=== PATIENT | male | born 1980 | race Two or more races ===

== ENCOUNTER 2022-01-28 13:52 | Outpatient (REF) | payer OTHER, SELFPAY ==
[2022-01-30 14:48] LABS: H Pylori Breath Test Positive (Negative)
== END 2022-01-28 13:53 | disposition home or self-care (01) ==
LOC: HO.LNP 13:52
PROVIDERS: Visit Provider Physician Assistant Surgical
DX: E66.9 Obesity, unspecified (principal); Z68.39 Body mass index [BMI] 39.0-39.9, adult; Z71.3 Dietary counseling and surveillance
CPT/HCPCS: 83013; 99202; 99211

== ENCOUNTER 2022-02-03 12:13 | Outpatient (REF) | payer OTHER, SELFPAY ==
--- NOTE | ~2022-02-03 | XR_ITS ---
EXAMINATION: XR CHEST CLINICAL INFORMATION: Obesity COMPARISON: None TECHNIQUE: 2 views of the chest were obtained. FINDINGS: No significant abnormality is noted involving the heart, lungs, mediastinum, bony thorax or soft tissues. XR/XR chest 2V IMPRESSION: Unremarkable examination.
[2022-02-03 12:28] LABS: MANUAL DIFF FLAG NO
[2022-02-03 12:36] LABS: Basophils Absolute Auto 0.1 X10*3/uL (0.0-0.2); Basophils Percent Auto 0.7 % (0-2); Eosinophils Absolute Auto 0.2 X10*3/uL (0.0-0.4); Eosinophils Percent Auto 2.2 % (0-4); Hematocrit 45.7 % (42.0-52.0); Hemoglobin 15.5 g/dl (14.0-18.0); Imm Gran Abs Auto 0.07 X10*3/uL (0.00-0.03); Imm Gran Pct Auto 0.9 % (0.0-0.4); Lymphocytes Absolute Auto 2.6 X10*3/uL (1.2-4.9); Lymphocytes Percent Auto 34.3 % (20-40); Mean Corpuscular HGB Conc 33.9 g/dl (31.0-36.0); Mean Corpuscular Hemoglobin 30.8 pg (27.0-33.0); Mean Corpuscular Volume 90.7 fL (80.0-98.0); Mean Platelet Volume 10.7 fL (9.4-12.4); Monocytes Absolute Auto 0.5 X10*3/uL (0.1-1.2); Monocytes Percent Auto 6.6 % (2-11); Neutrophils Absolute Auto 4.2 x10*3/uL (2.0-8.3); Neutrophils Percent Auto 55.3 % (45-73); Platelet Count 220 X10*3/uL (160-400); Red Blood Count 5.04 X10*6/uL (4.60-5.80); Red Cell Distribution Width 12.2 % (11.0-16.0); White Blood Count 7.6 X10*3/uL (4.8-10.8)
[2022-02-03 12:55] LABS: Estimated Average Glucose 151 mg/dL; Hemoglobin A1c % 6.9 %
[2022-02-03 13:46] LABS: Alanine Aminotransferase 34 U/L (0-40); Albumin Level 4.2 g/dL (3.5-5.0); Alkaline Phosphatase 74 U/L (39-117); Anion Gap 10 (12-20); Aspartate Amino Transferase 29 U/L (5-37); Bilirubin Total 0.4 mg/dL (0.0-1.0); Blood Urea Nitrogen 13 mg/dL (9-16); C Reactive Protein 0.42 mg/dL (< or = 0.50); Calcium 9.5 mg/dL (8.4-10.2); Carbon Dioxide 30 mmol/L (22-29); Chloride 105 mmol/L (96-108); Cholesterol 249 mg/dL; Estimated Glomerular Filt Rate > 60; Ferritin 476 ng/mL (20-250); Glucose Random 116 mg/dL (60-115); HDL Cholesterol 28 mg/dL; Insulin 26 uU/mL (2-29); Iron 81 mcg/dL (45-160); Percent Iron Saturation 28 % (15-50); Potassium 4.5 mmol/L (3.3-5.1); Sodium 140 mmol/L (135-145); TSH reflex Free T4 0.74 uIU/mL (0.32-4.0); Total Iron Binding Capacity 287 mcg/dL (228-428); Total Protein 7.2 g/dL (6.5-8.0); Triglycerides 860 mg/dL; Unsaturated Iron Binding 206 ug/dL; Vitamin D 25-OH Total 11.6 ng/mL (>30)
[2022-02-03 13:55] LABS: Folate 8.9 ng/mL (> or = 4.0); Vitamin B12 524 pg/mL (200-900)
[2022-02-04 17:48] LABS: Calcium (PTHI) 9.5 mg/dL (8.6-10.3); PTHI 68 pg/mL (16-77)
[2022-02-06 16:02] LABS: Zinc 81 mcg/dL (60-130)
[2022-02-07 10:19] LABS: Vitamin B1 10 nmol/L (8-30)
[2022-02-07 17:32] LABS: Vitamin A 47 mcg/dL (38-98)
== END 2022-02-03 12:14 | disposition home or self-care (01) ==
LOC: HO.XRAY 12:13
PROVIDERS: Visit Provider Physician Assistant Surgical
DX: E66.9 Obesity, unspecified (principal)
CPT/HCPCS: 36415; 71046; 80053; 80061; 82306; 82607; 82728; 82746; 83036; 83525; 83540; 83970; 84425; 84443; 84590; 84630; 85025; 86140

== ENCOUNTER → 2022-02-11 11:43 | Outpatient (REF) | payer OTHER, SELFPAY ==
--- NOTE | 2022-02-11 11:47 | ECG_ITS ---
Test Reason : E66.9 Obesity Blood Pressure : / mmHG Vent. Rate : 089 BPM Atrial Rate : 089 BPM P-R Int : 154 ms QRS Dur : 080 ms QT Int : 346 ms P-R-T Axes : 058 055 039 degrees QTc Int : 420 ms Normal sinus rhythm Normal ECG No previous ECGs available Referred By: Moe Burton Electronically Signed By:GENESIS MCCORD
== END ==
LOC: HO.CARD 11:43
PROVIDERS: Visit Provider Physician Assistant Surgical
DX: E66.9 Obesity, unspecified (principal)
CPT/HCPCS: 93005

== ENCOUNTER → 2022-02-16 11:36 | Outpatient (BNVA) | payer OTHER, SELFPAY | PROVIDERS: Visit Provider Physician Assistant Surgical | DX: E66.9 Obesity, unspecified (principal); Z68.38 Body mass index [BMI] 38.0-38.9, adult | CPT/HCPCS: 99212 ==

== ENCOUNTER → 2022-03-03 11:00 | Outpatient (BNVA) | payer OTHER, SELFPAY | PROVIDERS: Visit Provider Physician Assistant Surgical | DX: Z11.0 Encounter for screening for intestinal infectious diseases (principal) | CPT/HCPCS: 99211 ==

== ENCOUNTER 2022-03-03 16:46 | Outpatient (REF) | payer OTHER, SELFPAY ==
[2022-03-04 15:09] LABS: H Pylori Breath Test Negative (Negative)
== END 2022-03-03 16:47 | disposition home or self-care (01) ==
LOC: HO.LNP 16:46
PROVIDERS: Visit Provider Physician Assistant Surgical
DX: Z01.818 Encounter for other preprocedural examination (principal)
CPT/HCPCS: 83013

== ENCOUNTER → 2022-03-09 11:38 | Outpatient (BNVA) | payer OTHER, SELFPAY | PROVIDERS: Visit Provider Physician Assistant Surgical | DX: E66.9 Obesity, unspecified (principal); Z68.37 Body mass index [BMI] 37.0-37.9, adult | CPT/HCPCS: 99212 ==

== ENCOUNTER → 2022-03-10 11:05 | Outpatient (BNVA) | payer OTHER, SELFPAY | PROVIDERS: Referring Provider Physician Assistant Surgical; Visit Provider Dietitian, Registered | DX: E66.9 Obesity, unspecified (principal); Z68.37 Body mass index [BMI] 37.0-37.9, adult | CPT/HCPCS: 97802 ==

== ENCOUNTER 2022-03-23 08:08 | Outpatient (REF) | payer OTHER, SELFPAY ==
--- NOTE | ~2022-03-23 | US_ITS ---
EXAMINATION: US COMPLETE ABDOMEN WITH LIVER ELASTOGRAPHY CLINICAL INFORMATION: Obesity COMPARISON: None. TECHNIQUE: Real-time imaging of the abdominal viscera. Noninvasive ultrasound liver fibrosis assessment is performed using Teresa ElastPQ point quantification shear wave elastography (2D-SWE) with a C5-2 MHz transducer. Multiple elastography samples are obtained. FINDINGS: PANCREAS: The visualized pancreatic head and body are normal in appearance. The remainder of the pancreas is obscured from visualization by the overlying bowel gas. ABDOMINAL AORTA: The proximal, middle, and distal aortic segments are normal in caliber. INFERIOR VENA CAVA: Visualized portions are normal. LIVER: Normal. The liver demonstrates normal size, contour and echogenicity. No focal lesion or intrahepatic biliary duct dilatation. The right lobe measures 16 cm in length. The left lobe measures 11 cm in length. Portal flow is normal/hepatopedal Shear wave liver elastography median stiffness is 1.6 m/s (reference: normal median stiffness is 1.3 m/s or less). IQR/median stiffness to assess sampling precision is 0.15 (reference: good quality data set is IQR/median stiffness of 0.15 or less). GALLBLADDER: Normal. The gallbladder is physiologically distended without evidence of stones, sludge, polyps, wall thickening or pericholecystic fluid. COMMON BILE DUCT: Normal in caliber measuring 0.3 cm in diameter. RIGHT KIDNEY: Normal. No hydronephrosis. No renal calculi or focal parenchymal lesions. The kidney measures 11 cm in maximum dimension. LEFT KIDNEY: Normal. No hydronephrosis. No renal calculi or focal parenchymal lesions. The kidney measures 12 cm in maximum dimension. SPLEEN: Normal. The spleen measures 12 cm in maximum dimension. FREE FLUID: None. US/US abdomen comp w elastography IMPRESSION: 1. Impression: Limited visualization of the tail the pancreas otherwise unremarkable exam. 2. Liver elastography: In the absence of other known clinical signs, rules out compensated advanced chronic liver disease. Adequate liver sampling. REFERENCE: Society of Radiologists in Ultrasound Liver Stiffness Thresholds (2020): LIVER STIFFNESS THRESHOLDS: *Liver Stiffness equal or less than 1.3 m/s: High probability of being normal. *Liver Stiffness less than 1.7 m/s: In the absence of other known clinical signs, rules out compensated advanced chronic liver disease. *Liver Stiffness 1.7-2.1 m/s: Suggestive of compensated advanced chronic liver disease but need further test for confirmation. *Liver Stiffness over 2.1 m/s: Rules in compensated advanced chronic liver disease. *Liver Stiffness over 2.4 m/s: Suggestive of clinically significant portal hypertension. QUALITY OF DATA SET: *IQR/Median value equal or less than 0.15 implies a quality data set. *IQR/Median value over 0.15 implies a poor quality data set. SIGNIFICANT CHANGE FROM PRIOR EXAM: Significant change if liver stiffness measurement is 10% or greater from prior exam. OTHER CONSIDERATIONS: The stage of liver fibrosis may be overestimated in the setting of acute hepatitis, liver inflammation, elevated liver function tests, hepatic vascular congestion, obstructive cholestasis, non-fasting state, and infiltrative diseases such as amyloidosis and lymphoma. In some patients with NAFLD, the liver stiffness thresholds for compensated advanced chronic liver disease may be lower. In causes other than viral hepatitis and NAFLD, liver stiffness thresholds are not well established.
--- NOTE | ~2022-03-23 | FL_ITS ---
EXAMINATION: FL UPPER GI WITH AIR CLINICAL INFORMATION: Obesity. COMPARISON: None TECHNIQUE: Upper GI was performed using thin and thick barium and effervescent granules FINDINGS: Esophageal motility is normal. There is a small sliding-type hiatal hernia. There is mild gastroesophageal reflux. The stomach and duodenum are normal-appearing. No fold thickening, mass, ulcer or stricture. FLUOROSCOPY TIME: 0.4 minutes. DOSE AREA PRODUCT: 4.6 Gy-cm2 FL/FL upper GI w air IMPRESSION: Mild gastroesophageal reflux. Small sliding-type hiatal hernia.
== END 2022-03-23 08:09 | disposition home or self-care (01) ==
LOC: HO.US 08:08
PROVIDERS: Visit Provider Physician Assistant Surgical
DX: Z01.818 Encounter for other preprocedural examination (principal); E66.9 Obesity, unspecified; K21.9 Gastro-esophageal reflux disease without esophagitis
CPT/HCPCS: 74246; 76705; 76981

== ENCOUNTER → 2022-04-15 14:35 | Outpatient (BNVA) | payer OTHER, SELFPAY | PROVIDERS: PCP Physician Assistant Medical; Visit Provider Physician Assistant Surgical | DX: E66.9 Obesity, unspecified (principal); Z68.36 Body mass index [BMI] 36.0-36.9, adult | CPT/HCPCS: 99212 ==

== ENCOUNTER → 2022-05-04 11:06 | Outpatient (BNVA) | payer OTHER, SELFPAY | PROVIDERS: PCP Physician Assistant Medical; Visit Provider Physician Assistant Surgical | DX: E66.9 Obesity, unspecified (principal); Z68.36 Body mass index [BMI] 36.0-36.9, adult | CPT/HCPCS: 99212 ==

== ENCOUNTER → 2022-05-26 10:40 | Outpatient (BNVA) | payer OTHER, SELFPAY | PROVIDERS: PCP Physician Assistant Medical; Visit Provider Physician Assistant Surgical | DX: E66.9 Obesity, unspecified (principal); Z68.36 Body mass index [BMI] 36.0-36.9, adult | CPT/HCPCS: 99212 ==

== ENCOUNTER → 2022-06-22 08:41 | Outpatient (BNVA) | payer OTHER, SELFPAY | PROVIDERS: PCP Physician Assistant Medical; Visit Provider Surgery ==

== ENCOUNTER → 2022-07-21 08:03 | Outpatient (BNVA) | payer OTHER, SELFPAY | PROVIDERS: PCP Physician Assistant Medical; Visit Provider Surgery ==

== ENCOUNTER 2022-08-24 11:10 | Outpatient (AMB) | payer OTHER, SELFPAY ==
--- NOTE | 2022-08-24 11:16 | A.OFFVIS_ITS ---
Intake VS Expanded 08/24/22 11:20 Height 5 ft 5 in Weight 227 lb 12.8 oz BMI 37.9 BP 130/61 Blood Pressure Location Rt brachial Blood Pressure Position Sitting Pulse 80 Pulse Source Pulse Oximeter Temp 97.4 F Temperature Source Temporal Artery Scan Pulse Oximetry 95 Oxygen Delivery Method Room Air Body Fat 72.0 Body Fat Percentage 31.7 Free Fat Mass 155.6 Muscle Mass 148.0 Visceral Mass 17.0 Water Mass 116.8 BMR 2,112 Intake Visit Reasons: (OV) F/U SWL University Internship Required: Yes University Internship Name: office CMI Allergies shellfish derived Allergy (Mild, Verified 08/24/22 11:19) Swelling Medication List - Last Reconciled 08/24/22 by ROGER Humphries atorvastatin 40 mg PO DAILY cholecalciferol (vitamin D3) 125 mcg PO DAILY PRN CPAP (CPAP Machine/Device) As directed multivitamin 1 tab PO DAILY HPI HPI Comments History of Present Illness Details 42 yo male returns for pre-op planning weight today is 227.8 pounds initial weight on 01/21/22 was 236.6 weight loss 8.8 pounds or 3.7 % TBWL States 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 He states he is following the meal plan and was able to report the meal plan States he is frustrated that it is taking so long but admits to gaining weight due to lack of exercisse due to having to work more. He is moving his [employer] shop to a new location. States he had lost 10 pounds prior to him coming to the [facility]. Meal plan: 2 Premier shakes (HALF scoops each in 8oz low fat milk) at 9am-11am and 12pm- 2pm, 1 Zone Perfect protein bar at 3pm-5pm, one meal at 6pm (7 forks of protein and 7 forks of salad or vegetables) and one more Zone Perfect protein bar at 8pm-10pm exercise plan: none. [facility] Medical History (Updated 07/21/22 @ 12:18 by Shayne Lim MD) Back pain Sleep apnea treated with continuous positive airway pressure (CPAP) Surgical History History of tonsillectomy No pertinent past surgical history Family History Mother Hypertension Heart disease Father Diabetes High cholesterol Hypothyroid Brother No problems noted. Brother No problems noted. Sister No problems noted. Son Asthma Social History Alcohol intake: current Alcohol intake frequency: holidays/special occasions only Patient Tobacco Use Status: Former Tobacco user Quit Date: 02/16/21 Cigarettes Per Day: 10 Physical Exam Vital Signs: Last Vital Signs Temp 97.4 F 08/24/22 11:20 Pulse 80 08/24/22 11:20 BP 130/61 08/24/22 11:20 Pulse Ox 95 08/24/22 11:20 Oxygen Delivery Method Room Air 08/24/22 11:20 BMI result Body Mass Index 37.9 Const General: healthy appearing and no acute distress Resp Effort & Inspection: normal respiratory effort Auscultation: clear to auscultation bilaterally Cardio Rate: regular rate Rhythm: regular rhythm GI Auscultation: normal bowel sounds Extrem General: Yes normal to inspection Assessment & Plan Assessment & Plan (1) Obesity (BMI 30-39.9): Code(s): E66.9 - Obesity, unspecified Plan: Encouraged to try to do some cardio although he states he is working 12 hr days. He is not eating off plan and is committed to the process. Will schedule f/u with Dr Abraham Coding Level of Care Code Est Pt Level 3 (09072) Diagnoses Obesity (BMI 30-39.9) E66.9
[2022-08-24 11:20] VITALS: BP 130/61; PULSE 80; TEMP 36.3; O2SAT 95; BMI 37.9
== END 2022-08-24 11:46 | disposition home or self-care (01) ==
PROVIDERS: PCP Physician Assistant Medical; Visit Provider Physician Assistant Surgical
DX: E66.9 Obesity, unspecified (principal); Z68.37 Body mass index [BMI] 37.0-37.9, adult
CPT/HCPCS: 99213

== ENCOUNTER → 2022-08-24 11:10 | Outpatient (BNVA) | payer OTHER, SELFPAY | PROVIDERS: PCP Physician Assistant Medical; Visit Provider Physician Assistant Surgical | DX: E66.9 Obesity, unspecified (principal); Z68.37 Body mass index [BMI] 37.0-37.9, adult | CPT/HCPCS: 99212 ==

== ENCOUNTER 2022-09-14 07:49 | Outpatient (AMB) | payer OTHER, SELFPAY ==
--- NOTE | 2022-09-14 09:39 | A.OFFVIS_ITS ---
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 Change nutritional plan to 2 Premier shakes (HALF scoops each in 8oz low fat milk) at 9am-11am and 12pm-2pm, 1 Zone Perfect protein bar at 3pm-5pm, one meal at 6pm (7 forks of protein and 7 forks of salad or vegetables) and one more Zone Perfect protein bar at 8pm-10pm 2. If hungry at night, you can have another HALF Zone Perfect protein bar at 11pm-12am. 3. Exercise: start treadmill daily at 4 mph burning 300 calories per day daily. 4. You can play basketball and walk with the dog in addition to doing the treadmill daily [facility] Medical History (Updated 09/14/22 @ 09:55 by Shayne Lim MD) Back pain Sleep apnea treated with continuous positive airway pressure (CPAP) Surgical History History of tonsillectomy No pertinent past surgical history Family History Mother Hypertension Heart disease Father Diabetes High cholesterol Hypothyroid Brother No problems noted. Brother No problems noted. Sister No problems noted. Son Asthma Social History Alcohol intake: current Alcohol intake frequency: holidays/special occasions only Patient Tobacco Use Status: Former Tobacco user Quit Date: 02/16/21 Cigarettes Per Day: 10 Assessment & Plan Assessment & Plan (1) Obesity (BMI 30-39.9): Code(s): E66.9 - Obesity, unspecified Plan: 1. Plan for lap sleeve gastrectomy including upper GI endoscopy. All tests has been completed and reviewed and the patient is cleared for the surgery. ?If diaphragmatic or ventral hernias are present at time of surgery, these will be repaired laparoscopically as well. Risks and complications were discussed in detail including possible conversion to an open procedure, anastomotic leak, bleeding requiring transfusion, small bowel obstruction, , DVT and pulmonary embolism, cardiac, or pulmonary complications, as snf complications such as anastomotic ulcer, insufficient weight loss and vitamin deficiencies. I emphasized the importance of close follow-up, adherence to instructions and good communication. 2. Please follow the nutritional plan EXACTLY: to 1 Premier shake (HALF scoop each in 8oz low fat milk) at 9am-11am, TWO Zone Perfect protein bars at 12pm-2pm AND 3pm-5pm, one meal at 6pm (7 forks of protein and 7 forks of salad or vegetables) and one more Premier protein shake (1/2 scoop in 8oz low fat milk) at 8pm-10pm 3. You must measure the salad portion as well. If you eat a fruit it is part of your salad portion and the total amount of salad/fruit portion is also 7 forks. 4. If hungry at night, you can have another HALF Zone Perfect protein bar at 11pm-12am. 5. Exercise: wake up 30 minutes earlier in the morning and start treadmill daily at 4 mph burning 300 calories per day daily. Replace the basketball with the treadmill. 6. You must send me weight measurements weekly and not once a month (2) BMI 38.0-38.9,adult: Code(s): Z68.38 - Body mass index [BMI] 38.0-38.9, adult Telehealth Telehealth Location of provider rendering services: practice address Location of patient: address on file Patient Identification confirmed using: Name, : Yes Telehealth method: voice only Patient verbally consented to treatment: Yes Patient verbally consented to billing insurance company: Yes Patient informed of any privacy concerns related to visit: Yes Minutes spent on Phone/Video with Pt.: 32 Coding Level of Care Code Tele Est Pt Level 4 (05964) Diagnoses Obesity (BMI 30-39.9) E66.9 BMI 38.0-38.9,adult Z68.38 Time Spent (min) 32 Comment With a Mohawk speaking personal care aid
[2022-09-14 10:01] VITALS: BMI 38.5
== END 2022-09-14 10:09 | disposition home or self-care (01) ==
LOC: HO.HBS 07:49
PROVIDERS: PCP Physician Assistant Medical; Visit Provider Surgery
DX: E66.9 Obesity, unspecified (principal); Z68.38 Body mass index [BMI] 38.0-38.9, adult
CPT/HCPCS: 99214

== ENCOUNTER → 2022-09-14 07:49 | Outpatient (BNVA) | payer OTHER, SELFPAY | PROVIDERS: PCP Physician Assistant Medical; Visit Provider Surgery ==

== ENCOUNTER 2022-10-05 08:12 | Outpatient (AMB) | payer OTHER, SELFPAY ==
--- NOTE | 2022-10-05 09:12 | A.OFFVIS_ITS ---
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 Overall weight loss: 1.3lbs, or 0.55% TBWL Is doing 2 Premier shakes (HALF scoops each in 8oz low fat milk) at 9am-11am and 12pm-2pm, 1 Zone Perfect protein bar at 3pm-5pm, one meal at 6pm (7 forks of protein and 7 forks of salad or vegetables) and one more Zone Perfect protein bar at 8pm-10pm Exercise:none [facility] Medical History (Updated 09/14/22 @ 09:55 by Shayne Lim MD) Back pain Sleep apnea treated with continuous positive airway pressure (CPAP) Surgical History History of tonsillectomy No pertinent past surgical history Family History Mother Hypertension Heart disease Father Diabetes High cholesterol Hypothyroid Brother No problems noted. Brother No problems noted. Sister No problems noted. Son Asthma Social History Alcohol intake: current Alcohol intake frequency: holidays/special occasions only Patient Tobacco Use Status: Former Tobacco user Quit Date: 02/16/21 Cigarettes Per Day: 10 Physical Exam Vital Signs: Last Vital Signs BP 124/68 10/05/22 09:19 BMI result Body Mass Index 39.2 Assessment & Plan Assessment & Plan (1) Obesity (BMI 30-39.9): Code(s): E66.9 - Obesity, unspecified Plan: 1. Continue same nutritional plan of 2 Premier shakes (HALF scoops each in 8oz low fat milk) at 9am-11am and 12pm-2pm, 1 Zone Perfect protein bar at 3pm-5pm, one meal at 6pm (7 forks of protein and 7 forks of salad or vegetables) and one more Zone Perfect protein bar at 8pm-10pm 2. Each shake would be drunk slowly, like coffee in a period of 2 hours. 3. Cut each bar in 4 pieces and eat each piece in 30min to make each bar last 2 hours. 4. Take the Phentermine daily 11am. 5. If Phentermine reduces the hunger, use it to replace the dinner (NOT the shakes or the bars) as follows: 2 Premier shakes (HALF scoops each in 8oz low fat milk) at 9am-11am and 12pm-2pm, 3 Zone Perfect protein bars at 3pm-5pm, at 6pm-8pm and one more Zone Perfect protein bar at 8pm-10pm 6. If you eat a dinner, I emphasized the importance of measuring accurately the food portion and measure it when serving the food in plate. 7. Send me weight measurement today or tomorrow and then weekly 8. Start treadmill with an incline of 4.0 and speed of 3.4. Increase incline by 1 every 3 min to a max incline of 10.0, repeating cycles. Goal is to burn 2000 calories per week. 9. Alternatively start walking fast pace for one hour at least 2 days per week as possible and measure distance and calories. Send me the calories and distance from your health watch before and after the walk. Try to increase distance walked at the same time over time or use ankle weights and try to walk same distance with ankle weights burning more calories. Record these numbers so we can re-assess activity level at every follow-up visit. 10. We discussed the potential side-effects of the Phentermine such as irritability, dry mouth, difficulty sleeping, dizziness, numbness in feet and high blood pressure. I asked him to get a blood pressure monitor and measure the blood pressure daily in the morning and evening. He needs to send the blood pressure readings daily and to call the office for blood pressure over 140/80 and he understands that. (2) BMI 39.0-39.9,adult: Code(s): Z68.39 - Body mass index [BMI] 39.0-39.9, adult Medications: New phentermine must administer 30 minutes before or 1-2 hours after breakfast 37.5 mg PO DAILY 14 caps 0RF E66.9 - Obesity, unspecified, Z68.39 - Body mass index [BMI] 39.0-39.9, adult Telehealth Telehealth Location of provider rendering services: practice address Location of patient: address on file Patient Identification confirmed using: Name, : Yes Telehealth method: voice only Patient verbally consented to treatment: Yes Patient verbally consented to billing insurance company: Yes Patient informed of any privacy concerns related to visit: Yes Minutes spent on Phone/Video with Pt.: 30 Coding Level of Care Code Tele Est Pt Level 4 (85118) Diagnoses Obesity (BMI 30-39.9) E66.9 BMI 39.0-39.9,adult Z68.39 Time Spent (min) 30
[2022-10-05 09:19] VITALS: BP 124/68; BMI 39.2
== END 2022-10-05 12:58 | disposition home or self-care (01) ==
LOC: HO.HBS 08:13
PROVIDERS: PCP Physician Assistant Medical; Visit Provider Surgery
DX: E66.9 Obesity, unspecified (principal); Z68.39 Body mass index [BMI] 39.0-39.9, adult
CPT/HCPCS: 99214

== ENCOUNTER → 2022-10-05 08:12 | Outpatient (BNVA) | payer OTHER, SELFPAY | PROVIDERS: PCP Physician Assistant Medical; Visit Provider Surgery ==

== ENCOUNTER 2022-10-30 08:08 | Outpatient (AMB) | payer OTHER, SELFPAY ==
--- NOTE | 2022-10-30 11:46 | MHC.OFFVISWM ---
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* HPI Details Start time: 11.44am, End time: 12.04pm ?I spent 15 minutes speaking with the patient on the phone plus an additional 5 minutes reviewing and updating records for a total of 20 minutes HPI Comments History of Present Illness Details Overall weight loss: 11.1lbs, or 4.69% TBWL On Phentermine Denies any dry mouth, dizziness, foot numbness, irritability, insomnia Is doing 2 Premier protein shakes (1/2 scoop each in 8oz almond milk), 2 Zone Perfect protein bars and one meal (7 forks of meat and 7 forks of salad or vegetables) Exercise: is doing treadmill x 3-4/week for 20 minutes [facility] Medical History (Updated 09/14/22 @ 09:55 by Shayne Lim MD) Back pain Sleep apnea treated with continuous positive airway pressure (CPAP) Surgical History History of tonsillectomy No pertinent past surgical history Family History Mother Hypertension Heart disease Father Diabetes High cholesterol Hypothyroid Brother No problems noted. Brother No problems noted. Sister No problems noted. Son Asthma Social History Alcohol intake: current Alcohol intake frequency: holidays/special occasions only Patient Tobacco Use Status: Former Tobacco user Quit Date: 02/16/21 Cigarettes Per Day: 10 Assessment & Plan Assessment & Plan (1) Obesity (BMI 30-39.9): Code(s): E66.9 - Obesity, unspecified Plan: 1. Continue same nutritional plan of 2 Premier shakes (HALF scoops each in 8oz low fat milk) at 9am-11am and 12pm-2pm, 1 Zone Perfect protein bar at 3pm-5pm, one meal at 6pm (7 forks of protein and 7 forks of salad or vegetables) and one more Zone Perfect protein bar at 8pm-10pm 2. Each shake would be drunk slowly, like coffee in a period of 2 hours. 3. Cut each bar in 4 pieces and eat each piece in 30min to make each bar last 2 hours. 4. Take the Phentermine daily 11am. 5. If Phentermine reduces the hunger, use it to replace the dinner (NOT the shakes or the bars) as follows: 2 Premier shakes (HALF scoops each in 8oz low fat milk) at 9am-11am and 12pm-2pm, 3 Zone Perfect protein bars at 3pm-5pm, at 6pm-8pm and one more Zone Perfect protein bar at 8pm-10pm 6. If you eat a dinner, I emphasized the importance of measuring accurately the food portion and measure it when serving the food in plate. 7. Send me weight measurements weekly on Mondays 8. Start treadmill with an incline of 4.0 and speed of 3.4. Increase incline by 1 every 3 min to a max incline of 10.0, repeating cycles. Goal is to burn 2000 calories per week. 9. Alternatively start walking fast pace for one hour at least 2 days per week as possible and measure distance and calories. Send me the calories and distance from your health watch before and after the walk. Try to increase distance walked at the same time over time or use ankle weights and try to walk same distance with ankle weights burning more calories. Record these numbers so we can re-assess activity level at every follow-up visit. 10. We discussed the potential side-effects of the Phentermine such as irritability, dry mouth, difficulty sleeping, dizziness, numbness in feet and high blood pressure. I asked him to get a blood pressure monitor and measure the blood pressure daily in the morning and evening. He needs to send the blood pressure readings daily and to call the office for blood pressure over 140/80 and he understands that. (2) BMI 37.0-37.9, adult: Code(s): Z68.37 - Body mass index [BMI] 37.0-37.9, adult Telehealth Telehealth Location of provider rendering services: practice address Location of patient: address on file Patient Identification confirmed using: Name, : Yes Telehealth method: voice only Patient verbally consented to treatment: Yes Patient verbally consented to billing insurance company: Yes Patient informed of any privacy concerns related to visit: Yes Minutes spent on Phone/Video with Pt.: 20 Coding Level of Care Code Tele Est Pt Level 3 (88357) Diagnoses Obesity (BMI 30-39.9) E66.9 BMI 37.0-37.9, adult Z68.37 Time Spent (min) 20
[2022-10-30 11:49] VITALS: BP 116/75; BMI 37.5
== END 2022-10-30 12:05 | disposition home or self-care (01) ==
PROVIDERS: PCP Physician Assistant Medical; Visit Provider Surgery
DX: E66.9 Obesity, unspecified (principal); Z68.37 Body mass index [BMI] 37.0-37.9, adult
CPT/HCPCS: 99213

== ENCOUNTER → 2022-10-30 08:08 | Outpatient (BNVA) | payer OTHER, SELFPAY | PROVIDERS: PCP Physician Assistant Medical; Visit Provider Surgery ==

== ENCOUNTER 2022-11-18 07:41 | Outpatient (REF) | payer OTHER, SELFPAY ==
[2022-11-18 12:56] LABS: Alanine Aminotransferase 28 U/L (0-40); Albumin Level 4.2 g/dL (3.5-5.0); Alkaline Phosphatase 66 U/L (39-117); Anion Gap 15 (12-20); Aspartate Amino Transferase 20 U/L (5-37); Bilirubin Total 0.3 mg/dL (0.0-1.0); Blood Urea Nitrogen 14 mg/dL (9-16); C Reactive Protein 0.35 mg/dL (< or = 0.50); Calcium 9.8 mg/dL (8.4-10.2); Carbon Dioxide 27 mmol/L (22-29); Chloride 106 mmol/L (96-108); Cholesterol 188 mg/dL (<200); Estimated Glomerular Filt Rate > 60; Glucose Random 100 mg/dL (60-115); HDL Cholesterol 34 mg/dL (>40); LDL Cholesterol Calculated 123 mg/dL (<100); Potassium 4.6 mmol/L (3.3-5.1); Sodium 143 mmol/L (135-145); Triglycerides 158 mg/dL (<150)
[2022-11-18 12:57] LABS: Insulin 15 uU/mL (2-29); TSH reflex Free T4 0.44 uIU/mL (0.32-4.0)
== END 2022-11-18 07:42 | disposition home or self-care (01) ==
LOC: HO.LAB 07:41
PROVIDERS: PCP Physician Assistant Medical; Visit Provider Surgery
DX: E66.9 Obesity, unspecified (principal); Z68.36 Body mass index [BMI] 36.0-36.9, adult
CPT/HCPCS: 36415; 80053; 80061; 83036; 83525; 84443; 85025; 85610; 85730; 86140; 86850; 86900; 86901

== ENCOUNTER 2022-11-18 07:41 | Outpatient (AMB) | payer OTHER, SELFPAY ==
[2022-11-18 10:34] VITALS: BMI 36.1
--- NOTE | 2022-11-18 10:34 | MHC.OFFVISWM ---
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* Allergies shellfish derived Allergy (Mild, Verified 11/18/22 10:36) Swelling Medication List - Last Reconciled 11/18/22 by Shayne Lim MD atorvastatin 40 mg PO DAILY cholecalciferol (vitamin D3) 125 mcg PO DAILY PRN CPAP (CPAP Machine/Device) As directed multivitamin 1 tab PO DAILY ondansetron 4 mg PO Q12H pantoprazole 40 mg PO DAILY phentermine 37.5 mg PO DAILY phentermine 37.5 mg PO DAILY polyethylene glycol 3350 (Miralax) 17 grams PO DAILY sucralfate 10 mL PO BID HPI 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* HPI Details Start time: 10.28am, End time: 10.48am ?I spent 15 minutes speaking with the patient on the phone plus an additional 5 minutes reviewing and updating records for a total of 20 minutes HPI Comments History of Present Illness Details Overall weight loss: 19.9lbs, or 8.4% TBWL On Phentermine Denies any dry mouth, dizziness, foot numbness, irritability, insomnia Is doing 2 Premier protein shakes (1/2 scoop each in 8oz almond milk), 2 Zone Perfect protein bars and one meal (7 forks of meat and 7 forks of salad or vegetables) Exercise: is doing treadmill x 3-4/week for 20 minutes [facility] Medical History (Updated 11/18/22 @ 10:42 by Shayne Lim MD) Back pain Sleep apnea treated with continuous positive airway pressure (CPAP) Surgical History History of tonsillectomy No pertinent past surgical history Family History Mother Hypertension Heart disease Father Diabetes High cholesterol Hypothyroid Brother No problems noted. Brother No problems noted. Sister No problems noted. Son Asthma Social History (Reviewed 07/17/23 @ 11:23 by KATT Grewal Alcohol intake: current Alcohol intake frequency: holidays/special occasions only Patient Tobacco Use Status: Former Tobacco user Quit Date: 02/16/21 Cigarettes Per Day: 10 Assessment & Plan Assessment & Plan (1) Obesity (BMI 30-39.9): Code(s): E66.9 - Obesity, unspecified Plan: 1. Plan for lap sleeve gastrectomy including upper GI endoscopy. All tests has been completed and reviewed and the patient is cleared for the surgery. ?If diaphragmatic or ventral hernias are present at time of surgery, these will be repaired laparoscopically as well. Risks and complications were discussed in detail including possible conversion to an open procedure, anastomotic leak, bleeding requiring transfusion, small bowel obstruction, , DVT and pulmonary embolism, cardiac, or pulmonary complications, as long-term complications such as anastomotic ulcer, insufficient weight loss and vitamin deficiencies. I emphasized the importance of close follow-up, adherence to instructions and good communication. So far she has proven to be an excellent communicator and very compliant with all our directions accomplishing a great weight loss. I believe that she is an excellent candidate and she is ready. 2. Preop prescriptions were provided and explained the purpose of each one. Need to be purchased preop. Start Pantoprazole now as you get it from the pharmacy, 1 pill per day. Sucralfate and Zofran are for after surgery as needed. 3. Bowel prep: please do 7 packets ?of Miralax mixing each one with a an 8oz glass of water, crystal light, gatorade zero, or propel ?on 11/22/22 and the same amount on 11/23/22. Continue the protein shakes during? the bowel prep. 4. Needs to purchase 1oz medicine cups . 5. Needs to purchase Children's liquid Tylenol for postop pain control. 6. He needs to stop the Phentermine on Wednesday11/22/22. Avoid aspirin, motrin, Advil, Aleve, Ibuprofen, Naproxyn. Tylenol is OK. 7. He needs to purchase the Celebrate 4:1 protein shakes from the hospital's gift shop. 8. Will do basic preop blood work-up any day between Wednesday11/18/22 and Wednesday11/20/22 fasting for 12 hours and is scheduled to see the Anesthesiologist prior to the day of surgery. 9. Importance of adherence to postop folllow-up and recommendations was underscored and he understands that. 10. Stop food and bars as of today 11/18/22 and continue with 5 Premier protein shakes (ONE scoop EACH in 8oz almond milk) at 9am-11am, 12pm-2pm, 3pm-5pm, 6pm-8pm and at 9pm-11pm 11. No soups, broths or V8 12. The patient's?medical?history has been reviewed and they are considered low risk for post op DVT and therefore DVT prophylaxis is not considered necessary. Travel after surgery was reviewed. The patient has not disclosed any travel plans during the first 30 days after surgery and they have been advised that within the first 30 days after surgery any bus, plane, train or car travel over 2 hours in duration is contraindicated due to the possibility of developing blood clots from immobility. Any travel, needs to include periods of ambulation of 10 minutes in duration every 2 hours.? Patient was instructed to discuss any plans for travel during this period with their bariatric surgeon.? 13. Use your CPAP daily and bring it to the hospital with your mask 14. Please take at the day of surgery the following medications: NONE 15. Absolutely no smoking or vaping, or marijuana until the surgery and for at least the first 4 weeks. Only nicotine patches are allowed. 16. Send me weight measurements on Wednesday11/24/22 the day of surgery before you go to the hospital. 17. Avoid any steroids by mouth for any reason. Let me know if someone prescribes them to you (2) BMI 36.0-36.9,adult: Code(s): Z68.36 - Body mass index [BMI] 36.0-36.9, adult Telehealth Telehealth Location of provider rendering services: practice address Location of patient: address on file Patient Identification confirmed using: Name, : Yes Telehealth method: voice only Patient verbally consented to treatment: Yes Patient verbally consented to billing insurance company: Yes Patient informed of any privacy concerns related to visit: Yes Minutes spent on Phone/Video with Pt.: 20 Coding Level of Care Code Tele Est Pt Level 3 (88998) Diagnoses Obesity (BMI 30-39.9) E66.9 BMI 36.0-36.9,adult Z68.36 Time Spent (min) 20
== END 2022-11-18 10:49 | disposition home or self-care (01) ==
PROVIDERS: PCP Physician Assistant Medical; Visit Provider Surgery
DX: E66.9 Obesity, unspecified (principal); Z68.36 Body mass index [BMI] 36.0-36.9, adult
CPT/HCPCS: 99213

== ENCOUNTER 2022-11-24 06:07 | Inpatient (IN) | payer OTHER, SELFPAY ==
[2022-11-20 10:21] VITALS: BMI 36.1
--- NOTE | 2022-11-21 11:43 | P.HPSUR_ITS ---
Pre-Procedural Eval Section A Date of Service: 11/21/22 The patient is an INPATIENT: Yes The History & Physical has been completed within 30 days and I have reviewed it.: Yes Section B Chief Complaint: Obesity, unspecified Relevant Family History (Specify if Yes): No Relevant Social History: None Present Medications: None Medical History: No relevant PMH History of Previous Operations: No relevant previous surgery Allergies: Allergies Allergy/AdvReac Type Severity Reaction Status Date / Time cheese Allergy Intermediate vomiting/di Verified 11/20/22 10:18 arrhea shellfish derived Allergy Intermediate Swelling Verified 11/20/22 10:18 Review of Systems Sugical H&P ROS: Negative: Constitution, Cardiovascular, Respiratory, Neurological, Psychiatric, Hem-Onc, Allergic/Immunologic, Gastrointestinal, G enitourinary, Musculoskeletal, Integumentary, Endocrine and Eyes/Ears/Nose/Throat Exam Surgical H&P Exam: Normal: HEENT, Normal: Heart, Normal: Lungs, Normal: Extremities, Normal: Abdomen, Normal: Skin and Normal: Neurological Plan Diagnosis/Plan: Unchanged I have reviewed the history and physical and performed a pertinent physical examination on my patient. No changes have occurred unless specified. Time Spent With Patient Time: Total time managing care of this patient today ____ minutes.
--- NOTE | 2022-11-23 09:04 | P.CONAN_ITS ---
Documented by User: Dee Harper NP 11/23/22 09:05 HPI - Anesthesia Eval Consult details Narrative: 42yo M for Gastrectomy Sleeve- EGD, possible diaphragmatic hernia, possible ventral hernia, possible open PMFSH Active Problems Active Problems: All Active Problems (Updated 11/20/22 @ 10:17 by Zoya Cummings RN) BMI 36.0-36.9,adult (Acute) BMI 38.0-38.9,adult (Acute) BMI 37.0-37.9, adult (Acute) Non-insulin dependent type 2 diabetes mellitus (Acute) BMI 39.0-39.9,adult (Acute) Obesity (BMI 30-39.9) (Acute) Hypercholesterolemia (Acute) BEBE (obstructive sleep apnea) (Acute) Back pain (Acute) Sleep apnea treated with continuous positive airway pressure (CPAP) (Acute) Past Medical History Medical History Elevated cholesterol Type 2 diabetes mellitus Back pain Sleep apnea treated with continuous positive airway pressure (CPAP) Family History Family History Mother Hypertension Heart disease Father Diabetes High cholesterol Hypothyroid Brother No problems noted. Brother No problems noted. Sister No problems noted. Son Asthma Surgical History Surgical History History of tonsillectomy Social History Social History Are you a primary healthcare or medical to a significant other at home: No Do you presently have visiting nurse or other home services: No Alcohol intake: current Alcohol intake frequency: holidays/special occasions only Patient Tobacco Use Status: Former Tobacco user Quit Date: 02/2021 Tobacco use type: Cigarette Cigarettes Per Day: 10 Use of substances other than those prescribed or required for medical reasons: No Have you been hit, kicked, punched, or otherwise hurt by someone within the past year? If so, by whom?: No Are you DNR?: No Advance Directives: No Advance Directives Information Provided: No Advance Directives on File: No Recently lost weight without trying: No Eating poorly because of decreased appetite: No Nutrition Risks: No Nutritional Risk Poor oral hygiene: No (missing teeth) Meds Allergies Allergy/AdvReac Type Severity Reaction Status Date / Time cheese Allergy Intermediate vomiting/di Verified 11/24/22 06:25 arrhea shellfish derived Allergy Intermediate Swelling Verified 11/24/22 06:25 Home Medications Medication Instructions Recorded Confirmed Last Taken Type CPAP (CPAP Machine/Device) 01/21/22 11/18/22 Unknown History multivitamin 1 tab PO DAILY 03/09/22 11/24/22 11/21/22 History atorvastatin 40 mg tablet 40 mg PO DAILY 06/22/22 11/24/22 11/21/22 History Exam Exam Date and Time: November 23, 2022 0904 Height,Weight and Vital Signs: Height 5 ft 5 in Weight 98.43 kg Pertinent Lab Results Pertinent Lab Results: Laboratory Tests 11/18/22 11:05 Blood Type O Positive Antibody Screen NEGATIVE Laboratory Tests 11/18/22 11:14 WBC 5.4 Hgb 15.2 Hct 44.9 Plt Count 219 Sodium 143 Potassium 4.6 Chloride 106 Carbon Dioxide 27 BUN 14 Creatinine 0.97 Narrative Narrative: EKG 02/2022 Vent. Rate : 089 BPM Atrial Rate : 089 BPM P-R Int : 154 ms QRS Dur : 080 ms QT Int : 346 ms P-R-T Axes : 058 055 039 degrees QTc Int : 420 ms Normal sinus rhythm Normal ECG No previous ECGs available Assessment and Plan Assessment Anesthesia Assessment: Chart Reviewed Documented by User: Leah Morillo MD 11/24/22 07:24 [facility] Past Medical History Medical History Elevated cholesterol Type 2 diabetes mellitus Back pain Sleep apnea treated with continuous positive airway pressure (CPAP) Family History Family History Mother Hypertension Heart disease Father Diabetes High cholesterol Hypothyroid Brother No problems noted. Brother No problems noted. Sister No problems noted. Son Asthma Family history of problems with anesthesia: No Surgical History Surgical History History of tonsillectomy History of Problems with Anesthesia: No Social History Social History Are you a primary healthcare or medical to a significant other at home: No Do you presently have visiting nurse or other home services: No Alcohol intake: current Alcohol intake frequency: holidays/special occasions only Patient Tobacco Use Status: Former Tobacco user Quit Date: 02/2021 Tobacco use type: Cigarette Cigarettes Per Day: 10 Use of substances other than those prescribed or required for medical reasons: No Have you been hit, kicked, punched, or otherwise hurt by someone within the past year? If so, by whom?: No Are you DNR?: No Advance Directives: No Advance Directives Information Provided: No Advance Directives on File: No Recently lost weight without trying: No Eating poorly because of decreased appetite: No Nutrition Risks: No Nutritional Risk Poor oral hygiene: No (missing teeth) Meds Allergies Allergy/AdvReac Type Severity Reaction Status Date / Time cheese Allergy Intermediate vomiting/di Verified 11/24/22 06:25 arrhea shellfish derived Allergy Intermediate Swelling Verified 11/24/22 06:25 Home Medications Medication Instructions Recorded Confirmed Last Taken Type CPAP (CPAP Machine/Device) 01/21/22 11/18/22 Unknown History multivitamin 1 tab PO DAILY 03/09/22 11/24/22 11/21/22 History atorvastatin 40 mg tablet 40 mg PO DAILY 06/22/22 11/24/22 11/21/22 History Exam Airway Mallampati Class: II TM Dist: >3cm Neck ROM: Full Heart: rrr Lungs: cta Assessment and Plan Assessment Anesthesia Assessment: Anesthesia Plan Discussed Final Anesthetic Review Family History of Problems with Anesthesia: No History of Problems with Anesthesia: No NPO: Yes ASA Class: III Final Preanesthetic Review: No Changes in Pt Med Stat, Meds/Allgs Chart Reviewed, Consent Obtained/Reviewed and Anes Risks/Benef Reviewed Patient Risk: Intermediate Procedure Risk: Intermediate Anesthetic Plan Anesthetic Plan: GA Disposition: Standard PACU
[2022-11-24] VITALS (16 sets, daily range): BP systolic 120–187; BP diastolic 58–110; PULSE 70–97; RESP 14–20; TEMP 36.1–37; O2SAT 94–100
[2022-11-24 06:28] LABS: Glucose, Whole Blood 68 mg/dL (60-115)
[2022-11-24] MEDS: Aprepitant 32 MG/4.4 ML VIAL IVPUSH (06:49)
[2022-11-24] MEDS: Lactated Ringers 1,000 ML 100 ML IVCONT ×3 (06:50→20:11)
[2022-11-24] MEDS: Lactated Ringers 1,000 ML 999 ML IV (06:50)
--- NOTE | 2022-11-24 08:36 | PHA.MEDREC ---
Pharmacy Consult ? Medication Reconciliation Pharmacy has completed the medication reconciliation. med rec done by nursing has been reviewed by pharmacy
--- NOTE | 2022-11-24 10:10 | P.BOP_ITS ---
Brief Operative Note Date of Service: 11/24/22 Pre-op diagnosis: Severe obesity with comorbidities (see below) Post-op diagnosis: same Procedure: INITIAL PATIENT BMI ON PRESENTATION AT OUR OFFICE: 40.1 kg/m2 LAST BMI BEFORE SURGERY: 36.5 kg/m2 COMORBIDITIES: GERD, stress incontinence, prediabetes, hyperlipidemia, history of colon cancer, liver steatosis, liver fibrosis ?The patient presented to the Weight Management Program with significant obesity that was negatively impacting the patient's comorbidities as listed above.? The program is a phased program with a special focus on preoperative medical weight management to promote substantial weight loss and prepare the patients for the second phase of the program: bariatric surgery. The patient participated in an intensive weekly lifestyle ?intervention and exercise program during which the patient ?has lost between the initial office visit and the last preoperative visit 30.6 lbs, or 12% of initial actual body weight. It was deemed appropriate for the patient to now have bariatric surgery. In light of the current Covid-19 pandemic and the well documented strong association of obesity and increased risk of worse outcomes if infected with Covid-19 (REFERENCES: htt ps://pubmed.ncbi.nlm.nih.gov/65734948/ ,? https://pubmed.ncbi.nlm.nih.gov/27075821/ ), any delay in undergoing bariatric surgery may lead to the patient's worsening health condition and increased?risk of more severe Covid-19 disease if infected. In addition a recent?study from [facility] published in [facility] on 02/03/2021 ([email or web address]) found that, among patients with obesity, substantial weight loss achieved with surgery was associated with improved outcomes of COVID-19 infection. The findings suggest that obesity can be a modifiable risk factor for the severity of COVID-19 infection. In addition, the patient met the BMI-criteria for bariatric surgery based on the BMI on initial presentation. The patient should not be penalized for achieving such weight loss because ?it is not sustainable long-term without surgical intervention and it was achieved in preparation for bariatric surgery ?under my direction and based on my published research ([email or web address]).[email or web address] and? https://www.soard.org/article/S3177-7776(69)84545-X/pdf ) ?that a 10% preoperative weight loss improves long-term weight loss after surgery and reduces perioperative complications.? Insurance carriers such as [employer] have endorsed my recommendations ?and have included in their policies criteria to include a 10% preoperative weight loss requirement. PROCEDURE: Esophago-gastroscopy, laparoscopic sleeve gastrectomy and laparoscopic gastropexy INDICATIONS: This is a 42 year-old male who was electively scheduled for laparoscopic, possibly open sleeve gastrectomy. The risks and complications of the procedure were discussed with the patient in advance, particularly the possibility of ; pulmonary embolism; staple line leak; bleeding; GERD; cardiac, pulmonary, or renal complications; as well as long-term problems such as insufficient weight loss, vitamin deficiency, strictures, or ulcers. The patient understood all the risks, and was in agreement to proceed with surgery. DESCRIPTION OF PROCEDURE: After informed consent was obtained from the patient, the patient was given preoperative antibiotics, and was transferred to the operating room. After successful induction of general anesthesia, pneumatic compression devices were placed on both lower extremities. An upper endoscopy was performed next. The oropharynx and esophagus appeared to be within normal limits. There was a diaphragmatic hernia present of moderate size consistent with the findings of the preoperative upper GI. The stomach was entered. Then after all fluid and air were suctioned and the stomach was fully decompressed, the scope was withdrawn and secured in the mid esophagus. The patient was then prepped and draped in the usual sterile manner, and abdominal access was established at the right upper quadrant with the Huyen technique. A 12 mm blunt port was inserted, and the abdomen was insufflated with CO2 to a pressure of 15 mmHg. Under direct visualization, additional ports were placed, specifically two 5 mm Versi-step ports to the left upper quadrant, and a 5 mm Versi-Step port to the right upper quadrant. 1% lidocaine plain was used to infiltrate all port sites as well as all fascia defects. Using the EndoClose suture passer device, I placed a #1 Polysorb tie across the falciform ligament in order to retract it up against the abdominal wall and prevent injury of the ligament with our instruments during the procedure. Following that, the patient was placed in a steep reverse Trendelenburg position. An additional 5 mm port was placed to the right flank for the Mediflex retractor that was used to retract the left lobe of the liver. The gastro-esophageal fat pad was opened with the ultrasonic device (Thunderbeat, Olympus) and the anterior esophagus and hiatus were exposed. The angle of His was opened with the ultrasonic device the fundus of the stomach from any diaphragmatic and splenic attachments. I then opened the gastrocolic ligament between the transverse colon and the greater curvature of the stomach with the ultrasonic device to enter the lesser sac and facilitate the ligation of the short gastric vessels. I started at a mid-point along the greater curvature and using the Thunderbeat, all short gas tric vessels were divided all the way to the angle of His until the left arlen was completely dissected at its entirety. I then divided the gastro-colic ligament distally to a distance of about 3-4 cm proximal to the pylorus. The stomach was then divided transversely with two Endo SILVESTRE-45 purple and four SILVESTRE-60 articulating puplre loads using the SIGNSONIC BLUE AEROSPACE stapler and loads. Every effort was made that the gastric sleeve had a tubular shape and an even caliber throughout. Once the sleeve resection was completed, the staple line of the gastric sleeve was reinforced with Hemoclips. The resected stomach was retrieved without difficulty from the Huyen port. A gastropexy was then performed in order to prevent postoperative GERD and partial gastric volvulus. Several interrupted 2.0 Surgidac sutures were placed between the sleeve's staple line and the previously divided greater omentum and gastro-colic ligament using the Endo-Stitch device. ?An upper endoscopy was performed. There was no narrowing at the GE junction. The scope was easily advanced all the way to the pylorus which was clearly visualized. There was no narrowing anywhere and the sleeve's caliber was even throughout. The sleeve's staple line was inspected and there was no evidence of ischemia, bleeding or dehiscence. At that point the gastroscope was withdrawn from the patient?s mouth while we were decompressing the bowel and the stomach from any remaining air. I looked into the lesser sac to see how the sleeve was situating and it was situating well. There was no bleeding from the staple line, spleen, or short gastric vessels. The Mediflex retractor was removed, and the undersurface of the liver was inspected and there was no bleeding. The patient was placed in supine position. I closed the fascial defect of the 12 mm port site with a figure of eight #1 Polysorb suture. Then 30cc Ropivacaine plain with 10 mg of Dexamethasone were used to infiltrate the fascial closure as well as all skin incisions. A total of 4ml of Zynrelef was applied in the Huyen wound. At this point, the abdomen was deflated, all ports were removed under direct vision, and no bleeding was noted from any of the port sites. The skin incisions were irrigated with saline and were closed with 4-0 absorbable monofilament sutures. Steri-Strips and OpSites were used to cover all incisions. The patient was extubated and was transferred in stable condition to the recovery room for further care. I was present and performed all casper parts of the procedure. Mr. Burton was the cutter first. There were no residents to assist with this case. Edison Lim MD, PhD, FACS Surgeon: Shayne Lim MD Anesthesia: GETA, local and other (TAP block and 4ml Zynrelef) Was an Engine Generator Assembler used for this Procedure?: Yes Engine Generator Assembler: Moe Burton Estimated blood loss (mL): 10 Urine output (mL): 0 (No Roberson to record output) Pathology: other (Stomach) Condition: stable Disposition: PACU
[2022-11-24 10:12] LABS: Glucose, Whole Blood 123 mg/dL (60-115)
--- NOTE | 2022-11-24 10:15 | P.PNGS_ITS ---
Subjective Subjective Date of Service: 11/25/22 Interval history: Feels well. Mild incisional pain. He is tolerating phase 1 bariatric diet Physical Exam 2 Vital Signs: Vital Signs: Last Vital Signs Temp 97.0 F 11/24/22 06:31 Pulse 84 11/24/22 06:31 Resp 16 11/24/22 06:31 BP 138/74 11/24/22 06:31 Pulse Ox 98 11/24/22 06:31 O2 Del Method Room Air 11/24/22 06:31 BMI result Body Mass Index 36.1 GI: Inspection: Yes normal to inspection, Yes incision (clean, dry and intact) and Yes obesity Palpation (GI): Soft to palpation Extrem: Right lower extremity: normal to inspection (no calf tenderness) L eft lower extremity: normal to inspection (no calf tenderness) Objective Data Active Medications Fentanyl (Fentanyl Citrate/Pf 100 Mcg/2 Ml Vial) 25 mcg IVPUSH Q5M PRN; Protocol PRN Reason: Pain, Moderate(Pain Scale 4-6) Lactated Ringer's (Lr) 1,000 mls @ 100 mls/hr IVCONT .Q10H MINERVA Last Admin: 11/24/22 06:50 Dose: 100 mls/hr Documented By: NOMAN Ondansetron HCl (Ondansetron Hcl 4 Mg/2 Ml Vial) 4 mg IVPUSH ONCE PRN PRN Reason: Nausea and Vomiting Labs 11/25/22 06:11 11/25/22 06:11 Labs: Laboratory Results - last 24 hr 11/24/22 11/24/22 06:23 10:09 POC Glucose 68 123 H Procedures Date of Service Date of Service: 11/25/22 Progress Note: A&P Assessment and plan (1) S/P laparoscopic sleeve gastrectomy: Status: Acute (2) Obesity (BMI 30-39.9): Status: Acute (3) BMI 36.0-36.9,adult: Status: Acute (4) Sleep apnea treated with continuous positive airway pressure (CPAP): Status: Acute (5) Back pain: Status: Acute (6) Hypercholesterolemia: Status: Acute (7) Non-insulin dependent type 2 diabetes mellitus: Status: Acute (8) GERD (gastroesophageal reflux disease): Status: Acute (9) Liver fibrosis: Status: Acute Plan s/p laparoscopic sleeve gastrectomy and gastropexy Doing well Will check am labs and if OK the patient will be discharged home Time Spent With Patient Time: Total time managing care of this patient today ____ minutes. Quality Stroke Does the patient have a stroke diagnosis?: No VTE Prior VTE?: No VTE Risk Level:: Surgical - moderate VTE Device Contraindication: N/A - Device Ordered VTE Drug Contraindication: Treatment Not Indicated
--- NOTE | 2022-11-24 10:21 | PM.DS ---
DS: Providers Provider Date of Service: 11/25/22 Date of admission: 11/24/22 06:07 Primary care physician: ROGER Kerr DS: Diagnosis Discharge Diagnosis (1) S/P laparoscopic sleeve gastrectomy: Status: Acute DS: Summary Hospital Course Hospital Course: ADMITTING DIAGNOSIS: obesity, BEBE, HLD ? DISCHARGE DIAGNOSIS: same, s/p laparoscopic sleeve gastrectomy and repair diaphragmatic hernia ? PAST SURGICAL HISTORY: none ? PROCEDURE: upper endoscopy, laparoscopic sleeve gastrectomy ? DISCHARGE SUMMARY: ? History of Present Illness: ? The patient is a?42 year-old male with a BMI of?39.4 kg/m2 and associated co-morbidities as described above. The patient had extensive work-up,lost?20.1 lbs preoperatively and was electively scheduled for laparoscopic, possible open sleeve gastrectomy and gastropexy. Risks and complications of the surgery were discussed with the patient in advance, particularly the possibility of , pulmonary embolism, anastomotic leak, bleeding, bowel injury, GERD, cardiac, renal or pulmonary complications. The patient understood all the risks and was in agreement with the surgical plan. ? Hospital Course: ? The patient underwent an uneventful laparoscopic sleeve gastrectomy with gastropexy on the day of admission. Postoperatively, the patient was transferred to the surgical floor. The patient received IV Acetaminophen and IV dilaudid for pain control. Patient was started on bariatric phase 1 diet POD #0. On postoperative day one, the patient was feeling well without nausea, vomiting, fevers, or tachycardia. The patient had some mild incisional pain and the abdomen was soft. ? On the morning of postoperative day one, the patient was continued on 1 ounce of water or ice every half hour. During the day, the patient did fairly well, having some incisional pain, but able to ambulate adequately and to tolerate liquids well. ? Since the patient is doing well, we decided that the patient was ready to be discharged. The patient was given instructions to follow-up with me next week and to call my office for any fever over 101, persistent abdominal pain, nausea, vomiting, GERD, symptoms of DVT such as calf tenderness, or leg swelling, or pulmonary embolism such as chest pain or shortness of breath. The patient was also instructed to drink 40-60 ounces of liquids per day using the 1-ounce cups. The patient had been given prescriptions for Tylenol for pain, Zofran prn for nausea, and pantoprazole and carafate previously. The patient was encouraged to ambulate and use the incentive spirometer. The patient was allowed to shower, but no baths, and encouraged to stay active at home. All of these instructions were given to the patient personally. All questions were answered and the patient understood all instructions, the instructions were also given to the patient in print. Time Spent with Patient Time attestation: Total time managing care of this patient today ____ minutes. Discharge coordination time: Less than 30 minutes Quality: Safe Use of Opioids Does Pt have an Active Cancer Diagnosis on the Problem List?: No Quality: Stroke Does the patient have a stroke diagnosis?: No Physical Exam Vital Signs: Vital Signs: Last Vital Signs Temp 97.0 F 11/24/22 06:31 Pulse 84 11/24/22 06:31 Resp 16 11/24/22 06:31 BP 138/74 11/24/22 06:31 Pulse Ox 98 11/24/22 06:31 O2 Del Method Room Air 11/24/22 06:31 BMI result Body Mass Index 36.1 DS: Data Data Completed and Pending Pending studies at discharge: Pending at discharge 11/24/22 09:18 Surgical [PTH] Routine Labs on day of discharge: Laboratory Results - last 24 hr 11/24/22 11/24/22 06:23 10:09 POC Glucose 68 123 H Discharge Plan Discharge Anticipated Discharge Date/Time: 11/25/22 10:23 Patient Disposition: Home, Self-Care Discharge Diagnosis: s/p laparoscopic sleeve gastrectomy Referrals: Jason Russell PA [Primary Care Provider] - 1 Week Discharge Medications: Continued pantoprazole 40 mg tablet,delayed release (DR/EC) 40 mg PO DAILY Qty: 30 2RF sucralfate 100 mg/mL suspension 10 ml PO BID Qty: 400 2RF ondansetron 4 mg tablet,disintegrating 4 mg PO Q12H Qty: 20 0RF Rx Instructions: Only take one every 12 hours as needed if you have nausea (DME) CPAP Machine/Device Device See Rx Instructions .Route Rx Instructions: As directed atorvastatin 40 mg tablet 40 mg PO DAILY Discontinued cholecalciferol (vitamin D3) 125 mcg (5,000 unit) capsule 125 mcg PO DAILY PRN (Reason: vit D deficiency) Qty: 30 2RF phentermine 37.5 mg tablet 37.5 mg PO DAILY Qty: 14 0RF Rx Instructions: must administer 30 minutes before or 1-2 hours after breakfast multivitamin Tablet 1 tab PO DAILY Discharge Orders: Discharge Order (Routine); Ordered 11/25/22 Ordered By: Shayne Lim Activity on Discharge: No heavy lifting Stand Alone Forms: Patient Portal Discharge page Care Plan Goals: weight loss Health Concerns: obesity Plan of Treatment: No tub baths, sex or returning to work until discussed at first post op appointment. No exercise, alcohol, tobacco or illegal drug use. Continue to use incentive spirometer hourly while awake. Walk in home for 5- 10 minutes every 2 hours during the first week. Follow all instructions in the bariatric handbook and call with any questions.Discharge Instructions 1. Please call your doctor or come back to the emergency room should any new symptoms arise. 2. You will receive a courtesy call from [facility] 24-48 hours after discharge. 3. Activity: abstain from alcohol, practice limited stair climbing, no bending, no driving, no exercise, no illicit substances, no lifting, no sex, no tub bath, no work. 4. Diet: continue as discussed with Dr. Lim. 5. Dressing Change/Wound Care: Your incision is covered by clear bandages and guaze underneath. If the area is tender, you may apply an ice pack for short intervals (no more than 20 minutes on, followed by at least 20 minutes off). Do not apply heat. Do not use creams, lotions, or topical antibiotics unless instructed to do so by your surgeon. These can cause infection or allergic reaction. 6. Call your doctor if: - Your temperature exceeds 101.5 F - You experience excessive pain or swelling - You have an unexpected reaction to medication - You have excessive bleeding - You experience continued vomiting/nausea - Your incision begins to separate - Your incision shows signs of infection such as increased redness, swelling, excessive pain, heat, or drainage (light blood or clear fluid is normal) 7. General instructions: No lifting greater than 5 lbs for 1 week and not more than 20lbs the next 3?weeks. No driving until seen at the office in 5-7 days after surgery. If you do not move your bowels in the next 2 days, please tell?Dr. Lim. Please walk around your home every hour or two to prevent blood clots from forming in your legs. You do not need to wake from sleeping to walk. Please sleep in a bed or couch to prevent kinking at the hips and knees. Please take your incentive spirometer (your lung assistant professor of surgery) home with you and use it for the next few days to prevent pneumonia. You may shower, no hot tubs, baths or swimming pools.?Please follow the post op diet instructions you are?given by Dr Jarad samuel? and text me daily at 5-6pm for an update.?If you have any issues or concerns or questions please communicate this to him via text.? The Celebrate shakes have all of the bariatric vitamins you need if you consume these shakes. If you are drinking other protein shakes, you will need to purchase the Celebrate multivitamins and calcium that are available in the hospital gift shop on the first floor of the [facility].??Do not take anything without first discussing with Dr Lim. Please make sure you are consuming at least 40 ounces of fluids per day starting the?day AFTER your discharge from the hospital. Always drink 1-2 ml per minute using the 5ml?syringe. If you drink faster you may experience?bloating,?gas pain, burping, nausea or heartburn. In that case please slow down your pace and use the syringe to?understand better the?proper?pace and volume of drinking. Do not hesitate to contact the office with any questions at . The patient's medical history has been reviewed and they are considered low risk for post op DVT and therefore DVT prophylaxis is not considered necessary. Travel after surgery was reviewed. The patient has not disclosed any travel plans during the first 30 days after surgery and they have been advised that within the first 30 days after surgery any bus, plane, train or car travel over 2 hours in duration is contraindicated due to the possibility of developing blood clots from immobility. Any travel, needs to include periods of ambulation of 10 minutes in duration every 2 hours.? The patient was instructed to discuss any plans for travel during this period with their bariatric surgeon. Assessment: stable s/p laparoscopic sleeve gastrectomy Discharge Date/Time: 11/25/22 11:01
[2022-11-24] MEDS: fentaNYL citrate/PF 100 MCG/2 ML VIAL 25 MCG IVPUSH ×4 (10:25→10:50)
[2022-11-24 10:36] LABS: Hemoglobin 15.2 g/dl (14.0-18.0)
[2022-11-24 10:50] LABS: Anion Gap 14 (12-20); Blood Urea Nitrogen 12 mg/dL (9-16); Calcium 9.1 mg/dL (8.4-10.2); Carbon Dioxide 26 mmol/L (22-29); Chloride 103 mmol/L (96-108); Creatinine Clr Calc Pharmacy 91.8; Estimated Glomerular Filt Rate > 60; Glucose Random 142 mg/dL (60-115); Potassium 4.4 mmol/L (3.3-5.1); Sodium 139 mmol/L (135-145)
[2022-11-24] MEDS: HYDROmorphone HCl 0.5 MG/0.5 ML SYRINGE 0.25 MG IVPUSH (11:15)
--- NOTE | 2022-11-24 12:41 | PC.NURSE ---
upon administration of dilaudid as per order for pain patient desaturated especially with sleepiness. see cpap applied with 3lpm 02 then weaned to 2 lpm 02 and then up to urinate and then back to bed with 2lnc to floor to be placed back on cpap on floor.
[2022-11-24] MEDS: ceFAZolin Sodium/Dextrose,Iso 2 GM/50 ML PIGGYBACK IV (13:33)
[2022-11-24] MEDS: Acetaminophen 1,000 MG/100 ML PIGGYBACK 16.7 MG IV ×2 (14:40→20:04)
[2022-11-24] MEDS: Famotidine/PF 20 MG/2 ML VIAL IVPUSH (20:09)
--- NOTE | 2022-11-24 20:39 | PC.NURSE ---
Patient refused to use urinal to measure urine,voiding without difficulty
[2022-11-25 00:59] VITALS: BP 117/66; PULSE 79; RESP 16; TEMP 36.5; O2SAT 95
[2022-11-25] MEDS: Acetaminophen 1,000 MG/100 ML PIGGYBACK 16.7 MG IV ×2 (01:28→07:52)
[2022-11-25 04:00] VITALS: BP 129/58; PULSE 77; RESP 16; TEMP 36.3; O2SAT 98
[2022-11-25] MEDS: Lactated Ringers 1,000 ML 100 ML IVCONT (05:59)
[2022-11-25 06:16] LABS: MANUAL DIFF FLAG NO
[2022-11-25 06:35] LABS: Hematocrit 44.1 % (42.0-52.0); Hemoglobin 14.5 g/dl (14.0-18.0); Imm Gran Abs Auto 0.03 X10*3/uL (0.00-0.03); Imm Gran Pct Auto 0.3 % (0.0-0.4); Lymphocytes Percent Auto 11.9 % (20-40); Mean Corpuscular HGB Conc 32.9 g/dl (31.0-36.0); Mean Corpuscular Volume 91.3 fL (80.0-98.0); Mean Platelet Volume 10.7 fL (9.4-12.4); Monocytes Absolute Auto 0.7 X10*3/uL (0.1-1.2); Monocytes Percent Auto 7.5 % (2-11); Neutrophils Absolute Auto 6.9 x10*3/uL (2.0-8.3); Neutrophils Percent Auto 80.3 % (45-73); Platelet Count 236 X10*3/uL (160-400); Red Blood Count 4.83 X10*6/uL (4.60-5.80); Red Cell Distribution Width 11.4 % (11.0-16.0); White Blood Count 8.6 X10*3/uL (4.8-10.8)
[2022-11-25 06:42] LABS: Anion Gap 14 (12-20); Blood Urea Nitrogen 11 mg/dL (9-16); Calcium 9.8 mg/dL (8.4-10.2); Carbon Dioxide 27 mmol/L (22-29); Chloride 105 mmol/L (96-108); Estimated Glomerular Filt Rate > 60; Glucose Random 103 mg/dL (60-115); Potassium 5.1 mmol/L (3.3-5.1); Sodium 141 mmol/L (135-145)
[2022-11-25 07:13] VITALS: BP 104/57; PULSE 81; RESP 16; TEMP 36.7; O2SAT 95
[2022-11-25] MEDS: Famotidine/PF 20 MG/2 ML VIAL IVPUSH (07:53)
--- NOTE | 2022-11-25 09:07 | MHC.CM.PN ---
pt dcd home no services needed
--- NOTE | 2022-11-25 09:17 | HO.POSTANES ---
Post Anesthesia Evaluation Post Anesthesia Evaluation Date of Service: 11/25/22 Vital Signs: Vital Signs Temp Pulse Resp BP Pulse Ox O2 Del Method 11/25/22 07:13 98.0 F 81 16 104/57 L 95 Room Air 11/25/22 04:00 97.4 F 77 16 129/58 L 98 Room Air 11/25/22 00:59 97.7 F 79 16 117/66 95 Room Air Anesthesia: General Endotracheal-GETA Mental Status: Awake Pain Control: Satisfactory Nausea/Vomiting: None Hydration: Adequate Anesthesia-Related Issues: No Anes. Related Issues
== END 2022-11-25 11:01 | disposition home or self-care (01) | DRG 403 ==
LOC: HO.SSSA 10:23 → HO.S3 10:42
PROVIDERS: Physician Assistant Surgical; Admitting Provider Surgery; PCP Physician Assistant Medical; Visit Provider Surgery
PROC: 0DB64Z3 Excision of Stomach, Percutaneous Endoscopic Approach, Vertical (ICD-10-PCS; CPT 43845; principal; 2022-11-24 07:30)
DX: E66.01 Morbid (severe) obesity due to excess calories (principal); K74.00 Hepatic fibrosis, unspecified; E11.9 Type 2 diabetes mellitus without complications; G47.33 Obstructive sleep apnea (adult) (pediatric); M54.9 Dorsalgia, unspecified; K76.0 Fatty (change of) liver, not elsewhere classified; E78.00 Pure hypercholesterolemia, unspecified; Z68.36 Body mass index [BMI] 36.0-36.9, adult; Z87.891 Personal history of nicotine dependence; Z79.899 Other long term (current) drug therapy
CPT/HCPCS: 36415; 80048; 82947; 85014; 85018; 85025; 86850; 86900; 86901; 88305; 88307; 88342; A4649; C9088; C9145; J0131; J0690; J1100; J1170; J2250; J2405; J2795; J3010

== ENCOUNTER → 2022-11-24 06:07 | Outpatient (BNV) | payer OTHER, SELFPAY | PROVIDERS: Admitting Provider Surgery; PCP Physician Assistant Medical; Visit Provider Surgery | DX: E66.9 Obesity, unspecified (principal); Z68.36 Body mass index [BMI] 36.0-36.9, adult | CPT/HCPCS: 43659; 43775; 99024; 99499 ==

== ENCOUNTER 2022-12-01 10:10 | Outpatient (AMB) | payer OTHER, SELFPAY ==
--- NOTE | 2022-12-01 10:57 | MHC.OFFVISWM ---
Intake VS Expanded 12/01/22 11:15 BP 110/57 L Blood Pressure Location Rt brachial Blood Pressure Position Sitting Pulse 66 Pulse Source Pulse Oximeter Temp 97.4 F Temperature Source Temporal Artery Scan Pulse Oximetry 98 Oxygen Delivery Method Room Air Height 5 ft 5 in Weight 208 lb BMI 34.6 Body Fat % 29.4 Body Fat Mass 61.0 Fat Free Mass 146.8 Visceral Fat Rating 14.0 Body Water % 51.9 Body Water Mass 107.8 Muscle Mass/Score 139.6 Basal Metabolic Rate/Score 1,974 Intake Visit Reasons: (OV) 7 Days PO LSG 11/24/22 [employer] Sealer Required: No Allergies cheese Allergy (Intermediate, Verified 11/24/22 06:25) vomiting/diarrhea shellfish derived Allergy (Intermediate, Verified 11/24/22 06:25) Swelling Medication List - Last Reconciled 12/01/22 by ROGER Humphries atorvastatin 40 mg PO DAILY CPAP (CPAP Machine/Device) As directed pantoprazole 40 mg PO DAILY sucralfate 10 mL PO BID HPI HPI Comments History of Present Illness Details 42-year-old male, postop day 7., sleeve gastrectomy performed on 11/24/2022. Tolerating 3 celebrate foreign 1 shakes with 1 scoop each and approximately 40-50 oz of fluid daily. Positive bowel movement No significant pain. [facility] Medical History (Updated 11/26/22 @ 00:01 by Myrna Guillory) Liver fibrosis BMI 38.0-38.9,adult BMI 37.0-37.9, adult BMI 39.0-39.9,adult Elevated cholesterol Type 2 diabetes mellitus Back pain Sleep apnea treated with continuous positive airway pressure (CPAP) Surgical History S/P laparoscopic sleeve gastrectomy History of tonsillectomy Family History Mother Hypertension Heart disease Father Diabetes High cholesterol Hypothyroid Brother No problems noted. Brother No problems noted. Sister No problems noted. Son Asthma Social History Household Members: Spouse Housing: House Are you a primary healthcare translator to a significant other at home: No Do you presently have visiting nurse or other home services: No Alcohol intake: current Alcohol intake frequency: holidays/special occasions only Patient Tobacco Use Status: Former Tobacco user Quit Date: 02/2021 Tobacco use type: Cigarette Cigarettes Per Day: 10 e-Cigarette/Vaping Use: Currently Using Physical Exam Vital Signs: Last Vital Signs Temp 97.4 F 12/01/22 11:15 Pulse 66 12/01/22 11:15 BP 110/57 L 12/01/22 11:15 Pulse Ox 98 12/01/22 11:15 Oxygen Delivery Method Room Air 12/01/22 11:15 BMI result Body Mass Index 34.6 GI Inspection: Yes incision (mild bruising, c/d/i) Assessment & Plan Assessment & Plan (1) S/P laparoscopic sleeve gastrectomy: Code(s): Z98.84 - Bariatric surgery status Plan: POD 7 s/p LSG on 11/24/[address] Lim Weight loss prior to surgery was 20.1 pounds or 8.5% TBWL. Original weight on 01/28/22 was 234.6 pounds and op weight was 216.5 pounds. Be sure to text Dr Lim exactly 1 week after surgery your weight from your home scale so he can adjust your meal plan. Continue meal plan until f/u w Burton in 3 weeks May shower, no submersion in bath for another week Continue abdominal binder with activity and exercise for the next 2 weeks. Exercise prior to surgery was Treadmill and elliptical, may resume No abdominal exercises for 6 weeks post operatively Will be emailed link to post op video for review Reminded of the pace of drinking, 2 mL per minute, 1 oz/15 min. Coding Level of Care Code Global (24078) Diagnoses S/P laparoscopic sleeve gastrectomy Z98.84
[2022-12-01 11:15] VITALS: BP 110/57; PULSE 66; TEMP 36.3; O2SAT 98; BMI 34.6
== END 2022-12-01 11:38 | disposition home or self-care (01) ==
PROVIDERS: PCP Physician Assistant Medical; Visit Provider Physician Assistant Surgical
DX: Z98.84 Bariatric surgery status (principal)
CPT/HCPCS: 99024

== ENCOUNTER → 2022-12-01 10:10 | Outpatient (BNVA) | payer OTHER, SELFPAY | PROVIDERS: PCP Physician Assistant Medical; Visit Provider Physician Assistant Surgical ==

== ENCOUNTER 2023-01-12 11:58 | Outpatient (AMB) | payer OTHER, SELFPAY ==
--- NOTE | 2023-01-12 11:59 | A.OFFVIS_ITS ---
Intake VS Expanded 01/12/23 12:11 BP 128/59 L Blood Pressure Location Rt brachial Blood Pressure Position Sitting Pulse 89 Pulse Source Pulse Oximeter Temp 97.2 F Temperature Source Temporal Artery Scan Pulse Oximetry 99 Height 5 ft 5 in Weight 192 lb 6.4 oz BMI 32.0 Body Fat % 29.6 Body Fat Mass 56.8 Fat Free Mass 135.4 Visceral Fat Rating 6.0 Body Water % 50.2 Body Water Mass 96.6 Muscle Mass/Score 128.6 Basal Metabolic Rate/Score 1,815 Intake Visit Reasons: (OV) PO LSG 11/24/22 Special Agent In Charge Required: No Allergies cheese Allergy (Intermediate, Verified 01/12/23 12:02) vomiting/diarrhea shellfish derived Allergy (Intermediate, Verified 01/12/23 12:02) Swelling Medication List - Last Reconciled 01/12/23 by ROGER Humphries atorvastatin 40 mg PO DAILY CPAP (CPAP Machine/Device) As directed HPI HPI Comments History of Present Illness Details This?a?43?yo male who is s/p LSG without hiatal hernia repair on?11/24/2022. Presents for 6 week post op visit. Weight today is 192.4 pounds, with a BMI of 32. There has been a 44 pound weight loss,(initial weight 236.4 pounds) since starting the program on 01/28/2022 reflecting a 18.6% total body weight loss and a weight loss of 24.1 pounds since surgery (operative weight 216.5 pounds) reflecting a 11.1% TBWL since surgery. No complaints of nausea, emesis, abdominal pain or reflux. Reports infrequent but normal bowel movements every 1- 2 days. Was supposed to be doing 3 shakes, 1 scoop, 1 scoop, 2 scoops but he is doing only 2 shakes 2 scoops each. Wants to start food Present meal plan includes: 2 Premier Protein 2 scoops per shake in 8 oz unsweetened almond or oat milk, 8- 10, 11-1 ZP bar He is also doing homemade soup at night (ham soup/ chicken soup) ?Drinking 40 oz water Exercise routine includes: no formal exercise PFSH Medical History (Updated 11/26/22 @ 00:01 by Background Pastora) Liver fibrosis BMI 38.0-38.9,adult BMI 37.0-37.9, adult BMI 39.0-39.9,adult Elevated cholesterol Type 2 diabetes mellitus Back pain Sleep apnea treated with continuous positive airway pressure (CPAP) Surgical History S/P laparoscopic sleeve gastrectomy History of tonsillectomy Family History Mother Hypertension Heart disease Father Diabetes High cholesterol Hypothyroid Brother No problems noted. Brother No problems noted. Sister No problems noted. Son Asthma Social History Household Members: Spouse Housing: House Are you a primary in home caregiver to a significant other at home: No Do you presently have visiting nurse or other home services: No Alcohol intake: current Alcohol intake frequency: holidays/special occasions only Patient Tobacco Use Status: Former Tobacco user Quit Date: 02/2021 Tobacco use type: Cigarette Cigarettes Per Day: 10 e-Cigarette/Vaping Use: Currently Using Review of Systems Const All systems reviewed & are unremarkable except as noted in HPI and below Physical Exam Const General: healthy appearing and no acute distress Resp Effort & Inspection: normal respiratory effort Auscultation: clear to auscultation bilaterally Cardio Rate: regular rate Rhythm: regular rhythm GI Auscultation: normal bowel sounds Extrem General: Yes normal to inspection Assessment & Plan Assessment & Plan (1) S/P laparoscopic sleeve gastrectomy: Code(s): Z98.84 - Bariatric surgery status Plan: Discussed avoiding super. Discussed the importance of dedicated cardio exercise. 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 Change meal plan: Pre mere protein powder Shake 2 scoops Shake 1 scoop Zone perfect bar Meal for forks protein and 2 forks vegetables Return to clinic 3-4 weeks. Coding Level of Care Code Global (76647) Diagnoses S/P laparoscopic sleeve gastrectomy Z98.84
[2023-01-12 12:11] VITALS: BP 128/59; PULSE 89; TEMP 36.2; O2SAT 99; BMI 32.0
== END 2023-01-12 12:33 | disposition home or self-care (01) ==
PROVIDERS: PCP Physician Assistant Medical; Visit Provider Physician Assistant Surgical
DX: Z98.84 Bariatric surgery status (principal)
CPT/HCPCS: 99024

== ENCOUNTER → 2023-01-12 11:58 | Outpatient (BNVA) | payer OTHER, SELFPAY | PROVIDERS: PCP Physician Assistant Medical; Visit Provider Physician Assistant Surgical | DX: Z98.84 Bariatric surgery status (principal) | CPT/HCPCS: 99212 ==